=== PATIENT | female | born 1995 | race Caucasian/White ===

== ENCOUNTER 2024-02-28 22:03 | Emergency (ER) | payer OTHER, SELFPAY ==
[2024-02-28 22:07] VITALS: BP 133/91; PULSE 87; TEMP 37; O2SAT 100; BMI 21.8
[2024-02-28] MEDS: AMOXICILLIN/POT CLAV 875-125 MG TABLET 1 TAB PO (23:51)
--- NOTE | 2024-02-29 00:44 | ED_ITS ---
HPI HPI - General Adult General Chief complaint: Extremity Injury, Upper Stated complaint: Vanessa Bite Time Seen by Provider: 02/28/24 22:58 Source: patient Mode of arrival: walk-in Limitations: no limitations History of Present Illness HPI narrative: 28-year-old female to the emergency department with chief complaint of Cat bite. Patient reports that her boyfriend has a cat that is not nice. It bit her on the right hand tonight. It is a house cat. Up-to-date on vaccinations as far as she knows. No concern for rabies. Her tetanus is up-to-date. Related Data Previous Rx's ?Medication ?Instructions ?Recorded amoxicillin 875 mg-potassium 1 tab PO Q12H #14 tabs 02/28/24 clavulanate 125 mg tablet Allergies Allergy/AdvReac Type Severity Reaction Status Date / Time No Known Drug Allergies Allergy Verified 02/28/24 22:12 Opioid HPI Opioid Management Most Recent Opioid Data: No Data to Display Review of Systems ROS Status of ROS 10 or more systems reviewed and unremark able except as noted in history and below PFSH PFSH Social History Little interest or pleasure in doing things: not at all Feeling down, depressed, or hopeless: not at all Exam Narrative Exam Narrative: VITALS: I have reviewed the triage vital signs. GENERAL: Well developed, well appearing adult in no acute distress. Right hand: Several small superficial puncture wounds over the dorsum of the hand radial aspect of the hand/wrist. No active bleeding. Radial pulses intact. Cap refill intact in each digit. Sensation is intact over the hand. Compartments are soft. No edema. SKIN: Warm and dry. Normal turgor. No rash or lesions appreciated. PSYCH: Mood, affect, and interaction is appropriate to the setting. Constitutional Vital Signs, click to edit/add: Last Vital Signs Temp 98.6 F 02/28/24 22:07 Pulse 87 02/28/24 22:07 Resp 16 02/28/24 22:07 BP 133/91 02/28/24 22:07 Pulse Ox 100 02/28/24 22:07 O2 Del Method Room Air 02/28/24 22:07 Course Vital Signs Vital signs: Vital Signs Temperature 98.6 F 02/28/24 22:07 Pulse Rate 87 02/28/24 22:07 Respiratory Rate 16 02/28/24 22:07 Blood Pressure 133/91 02/28/24 22:07 Pulse Oximetry 100 02/28/24 22:07 Oxygen Delivery Method Room Air 02/28/24 22:07 Temperature 98.6 F 02/28/24 22:07 Pulse Rate 87 02/28/24 22:07 Respiratory Rate 16 02/28/24 22:07 Blood Pressure 133/91 02/28/24 22:07 Pulse Oximetry 100 02/28/24 22:07 Oxygen Delivery Method Room Air 02/28/24 22:07 Medical Decision Making MDM Narrative Medical decision making narrative: 28-year-old female to the emergency department chief complaint of cat bite to her hand. Vital stable, the patient is afebrile. Irrigated and soaked per nursing staff. Augmentin given in the ER. Augmentin for home. Tetanus is up-to-date. Discussed risk of rabies, shared decision making to not administer rabies vaccine at this time. Discussed signs of worsening infection. She will follow-up with her doctor. Patient was discharged home Discharge Plan Discharge Chief Complaint: Extremity Injury, Upper Clinical Impression: Cat bite Patient Disposition: Home, Self-Care Time of Disposition Decision: 23:15 Condition: Good Mode of Transportation: Private Vehicle Prescriptions / Home Meds: New amoxicillin-pot clavulanate 875-125 mg tablet 1 tab PO Q12H Qty: 14 0RF Print Language: Citizen Of [place] Instructions: Animal Bite (ED) Additional Instructions: Call the office of your primary care doctor to arrange for follow-up within the above-stated timeframe. Your ED visit was focused on your acute issue and does not replace primary care. You should review your labs, imaging, and diagnoses from this ED visit with your primary care physician. There may be non-emergent/ incidental findings that need further evaluation. You should review your vital signs including blood pressure with your PCP. If you were prescribed medications you should discuss possible side-effects and drug interactions with your pharmacist. Call 911 or go to the nearest Emergency Department if you develop any new or worsening symptoms. Watch for signs of worsening infection including fever, redness, warmth, increased swelling or pain. Referrals: [facility] [Primary Care Provider] - 1 week Discharge Date/Time: 02/28/24 23:53
== END 2024-02-28 23:53 | disposition home or self-care (01) ==
PROVIDERS: Emergency Provider Student in an Organized Health Care Education/Training Program
DX: S61.451A Open bite of right hand, initial encounter (principal); W55.01XA Bitten by cat, initial encounter
CPT/HCPCS: 99283